=== PATIENT | female | born 1970 | race Caucasian/White ===

== ENCOUNTER 2023-04-22 07:07 | Emergency (ER) | payer MEDICARE ==
[~2023-04-22] VITALS: Ht 165.1 cm; Wt 110.2 kg
[~2023-04-22 07:07] MED LIST: CYCL10TA16 PO; ELET20TA2 PO; IBUP-1493 PO; PRED20TA3 PO; TRAM50TA4 PO
[2023-04-22] MEDS: SOLU-MEDROL 125MG VIAL IM ONE (07:44)
[2023-04-22] MEDS: ACETAMINOPHEN 500 MG TABLET PO ONE (07:44)
[2023-04-22 07:51] LABS: RAPID GROUP A STREP negative (NEGATIVE)
[2023-04-22] MEDS: ALBUTEROL 0.083% 2.5 MG/3 ML INH IH ONE (07:59)
[2023-04-22 08:02] VITALS: PULSE 92; RESP 18
[2023-04-22 09:18] LABS: INFLUENZA TYPE A NEGATIVE FOR TYPE A (NEGATIVE); INFLUENZA TYPE B NEGATIVE FOR TYPE B (NEGATIVE); SARS-CoV-2, RNA, NAAT POSITIVE SARS CoV-2 (NEGATIVE)
[2023-04-22] MEDS ORDERED: AZIT250T9 PO (09:36)
[2023-04-22] MEDS ORDERED: ALBUHFA IH (09:36)
[2023-04-22] MEDS ORDERED: PRED20TA3 PO (09:36)
[2023-04-22] MEDS ORDERED: GUAI600T50 PO (09:36)
[2023-04-22 09:52] VITALS: BP 110/74; PULSE 97; RESP 20; O2SAT 94
== END 2023-04-22 09:55 | disposition home or self-care (01) ==
LOC: EDH 07:07
DX: U07.1 COVID-19 (principal); J02.8 Acute pharyngitis due to other specified organisms; J20.9 Acute bronchitis, unspecified; E11.9 Type 2 diabetes mellitus without complications; I10 Essential (primary) hypertension; M79.7 Fibromyalgia; Z79.52 Long term (current) use of systemic steroids; Z88.6 Allergy status to analgesic agent
CPT/HCPCS: 99284; 71045; 87635; 87880; 87804 ×2; 76536; 96372; 94640; J2930